=== PATIENT | female | born 1975 | race Two or more races ===

== ENCOUNTER 2022-11-04 15:54 | Emergency (ER) | payer OTHER ==
[~2022-11-04] VITALS: Ht 154.9 cm; Wt 68.0 kg
[2022-11-04] MEDS ORDERED: ZYRTEC10 M3 PO (16:19)
[2022-11-04] MEDS ORDERED: OPCICON ONE-ST1.5 MG (16:19)
== END 2022-11-04 23:23 | disposition home or self-care (01) ==
LOC: ER 15:54
PROVIDERS: General Practice
DX: H10.89 Other conjunctivitis (principal); B34.9 Viral infection, unspecified; Z20.822 Contact with and (suspected) exposure to COVID-19; Z88.6 Allergy status to analgesic agent